=== PATIENT | female | born 1955 | race Two or more races ===

== ENCOUNTER 2016-10-01 10:19 | Emergency (ER) | payer MEDICAID, OTHER ==
[~2016-10-01] VITALS: Ht 162.6 cm; Wt 65.7 kg
[2016-10-01] MEDS ORDERED: SODIUM CHLORIDE 0.9% 1,000ML IVBOLUS ONE (12:30)
[2016-10-01] MEDS ORDERED: ONDANSETRON 2MG/ML, 2ML IVPush ONE (12:30)
[2016-10-01] MEDS ORDERED: FAMOTIDINE 20 MG/2 ML IVP ONE (12:30)
[2016-10-01] MEDS ORDERED: SODIUM CHLORIDE FLUSH 10ML SYR IVF ONE (12:30)
[2016-10-01] MEDS ORDERED: ONDANSETRON 2MG/ML, 2ML ONE (12:35)
[2016-10-01] MEDS ORDERED: FAMOTIDINE 20 MG/2 ML ONE (12:36)
[2016-10-01 12:40] VITALS: BP 110/69
[2016-10-01 12:44] LABS: HEMOGLOBIN 13.5 g/dL (11.7-16.4)
[2016-10-01 12:53] LABS: ASPARTATE AMINO TRANSFERASE 17 U/L (15-37); BLOOD UREA NITROGEN 12 mg/dL (7-18)
== END 2016-10-01 14:00 | disposition home or self-care (01) ==
LOC: ED 13:19
DX: K52.89 Other specified noninfective gastroenteritis and colitis (principal)
CPT/HCPCS: 36415; 76700; 80053; 81003; 83690; 85025; 96374; 96375; 99285; J2405; J7030; S0028

== ENCOUNTER 2016-10-27 11:09 | Emergency (ER) | payer MEDICAID ==
[~2016-10-27] VITALS: Ht 162.6 cm; Wt 65.2 kg
[2016-10-27 11:11] VITALS: BP 135/72
== END 2016-10-27 13:36 | disposition home or self-care (01) ==
LOC: ED 13:10
DX: S16.1XXA Strain of muscle, fascia and tendon at neck level, initial encounter (principal); X58.XXXA Exposure to other specified factors, initial encounter; Y93.9 Activity, unspecified; Y92.9 Unspecified place or not applicable; Y99.9 Unspecified external cause status
CPT/HCPCS: 72050

== ENCOUNTER 2020-12-05 22:22 | Emergency (ER) | payer MEDICAID ==
[~2020-12-05] VITALS: Ht 167.6 cm; Wt 68.4 kg
--- NOTE | 2020-12-05 22:25 | NUR ---
LIBERTY RN: NOT IN LOBBY WHEN CALLED FOR TRIAGE
--- NOTE | 2020-12-05 22:59 | NUR ---
FREELANCE DISPLAYER: PT. TO ROOM FROM LOBBY AT THIS TIME.
--- NOTE | 2020-12-05 23:18 | NUR ---
Assumed care of pt at this time. This is a 65 yo female who reports onset of a headache with numbness in mouth and across jaw after eating around 1999 this evening. Pt reports this is mostly resolved. Face symmetrical. Specialist Icu equal bilaterally. Pt moving all extremities w/o difficulty. Speech clear. Pearrla. Pt reports headache is "light, across my forehead" and rates it at 4/10. Pt on cont Bp, cardiac and SPO2 monitors. Call light within reach. Will cont to monitor pt. Awaiting MANPREET kearns.
[2020-12-05] MEDS ORDERED: MELO7.5T31 PO (23:27)
[2020-12-05 23:41] LABS: BASOPHILS % (AUTO) 1 % (0-1); EOSINOPHILS % (AUTO) 1 % (1-7); LYMPHOCYTES % (AUTO) 46 % (22-44); MEAN CORPUSCULAR HEMOGLOBIN 22.2 pg (27.0-34.8); MEAN PLATELET VOLUME 8.1 fL (7.4-10.4); MONOCYTES % (AUTO) 7 % (2-9); NEUTROPHILS % (AUTO) 45 % (42-75); PLATELET COUNT 259 x10^3/uL (130-400); RED BLOOD COUNT 5.63 x10^6/uL (3.82-5.3); RED CELL DISTRIBUTION WIDTH 16.3 % (9.6-15.2)
[2020-12-05 23:42] LABS: MD NO
[2020-12-05 23:51] LABS: ANION GAP 4 mmol/L (5-15); CALCIUM 8.6 mg/dL (8.5-10.1); CHLORIDE 107 mmol/L (98-107)
[2020-12-06 01:01] VITALS: BP 141/82
== END 2020-12-06 01:03 | disposition home or self-care (01) ==
LOC: ED 22:52
DX: R51.9 Headache, unspecified (principal); R20.2 Paresthesia of skin; R94.31 Abnormal electrocardiogram [ECG] [EKG]
CPT/HCPCS: 36415; 70450; 80048; 85025; 93005; 99285